=== PATIENT | female | born 1950 | race Caucasian/White ===

== ENCOUNTER → 2023-10-18 | Day surgery (SDC) | payer MEDICARE ==
[~2023-10-18] MED LIST: LIDOCAINE 1% INJ 10MG/ML (20 ML MDV) ONE; SODIUM CHLORIDE 0.9% 1,000 ML IV SCH
[2023-10-18 12:31] VITALS: BP 139/83; PULSE 82; RESP 16; TEMP 97.1
[2023-10-18] MEDS: LIDOCAINE 1% INJ 10MG/ML (20 ML MDV) SQ ONE (14:10)
--- NOTE | 2023-10-18 16:20 | P.PCN ---
Description of Procedure: Procedure: Insertion of Linq loop recorder Indication: Syncope CONSENT:I have discussed the risks, benefits and alternative therapies for the above-mentioned procedure. The patient has indicated understanding and acceptance of the risks and procedures discussed. PROCEDURE: Patient was brought to the catheterization lab in a fasting state. Patient was prepped and draped in the usual fashion. 1% lidocaine was used to anesthetize the area of the left third intercostal space. Using the loop recorder incision device, a small 0.5 cm incision was made in the left 3rd intercostal space. Next the Linq loop recorder was deployed in the 3rd intercostal space subcutaneously using the insertion tool. Thresholds were checked and were excellent at 0.2 V. Next the incision was closed using Dermabond. Steristrips were placed over the incision and the procedure was completed. The patient tolerated the procedure well. The patient was transported to the post cath holding area in stable condition. Linq loop recorder serial number: [id number]]
== END ==
LOC: CATHEP 11:34
PROVIDERS: ATTEND Internal Medicine
DX: I42.8 Other cardiomyopathies (principal); R55 Syncope and collapse; E78.2 Mixed hyperlipidemia; F17.210 Nicotine dependence, cigarettes, uncomplicated; Z88.8 Allergy status to other drugs, medicaments and biological substances; Z88.2 Allergy status to sulfonamides; Z88.6 Allergy status to analgesic agent; Z79.899 Other long term (current) drug therapy
CPT/HCPCS: 33285; C1764; J0690; J2001